=== PATIENT | male | born 1975 | race Caucasian/White ===

== ENCOUNTER 2020-04-18 08:27 | Emergency (ER) | payer OTHER ==
[~2020-04-18] VITALS: Ht 177.8 cm; Wt 88.5 kg
--- OUTSIDE RECORDS SUMMARY | 2020-04-18 08:40 | XMS ---
PreManage Notification: JOAQUÍN MEJIAS [employer] Shift Supervisor Events No recent Security Events currently on file CRITERIA MET - [facility] - 2 Visits in 30 Days CARE PROVIDERS TANVIR Ball Nurse Practitioner Current PHONE: [phone] Narinder has no Care Guidelines for this patient. EMayito VISIT COUNT (12 MO.) 2 Timothy Lujan [address] [place] [address] TOTAL 3 NOTE: Visits indicate total known visits. ED/UCC VISIT TRACKING (12 MO.) 04/18/2020 08:28 [facility] TYPE: Emergency COMPLAINT: - TESTICULAR PAIN 04/05/2020 13:00 [facility] TYPE: Emergency DIAGNOSES: - Laceration without foreign body, right foot, initial encounte - Foot Injury - Contusion of right foot, initial encounter - Right foot injury 03/03/2020 08:35 [facility] [place] TYPE: Urgent Care DIAGNOSES: - Other stimulant abuse, in remission - Strain of muscle, fascia and tendon of lower back, initial en - Encounter for screening for depression - Alcohol abuse counseling and surveillance of alcoholic - Nicotine dependence, unspecified, uncomplicated - Encounter for other general counseling and advice on contrace 07/29/2019 14:28 [facility] TYPE: Emergency DIAGNOSES: - Back pain - Radiculopathy, lumbar region INPATIENT VISIT TRACKING (12 MO.) No inpatient visits to display in this time frame [email or web address]
[2020-04-18] MEDS ORDERED: ACETAMINOPHEN500 MG PO (08:49)
[2020-04-18] MEDS ORDERED: HYDROXYZINE HCL50 MG PO (08:50)
[2020-04-18] MEDS ORDERED: ADVIL200 MG PO (08:50)
[2020-04-18] MEDS ORDERED: TRAZODONE HCL100 MG PO (08:51)
[2020-04-18] MEDS ORDERED: MELATIN3 MG PO (08:51)
[2020-04-18] MEDS ORDERED: ONE-DAILY MULT1 EAC1 PO (08:52)
[2020-04-18] MEDS ORDERED: DOXYCYCLINE HY100 MG PO (11:48)
[2020-04-18] MEDS ORDERED: NORCO 5-325 TA1 EACH PO (11:49)
[2020-04-18] MEDS ORDERED: NAPROSYN500 MG PO (11:49)
== END 2020-04-18 12:31 | disposition home or self-care (01) ==
LOC: ED 08:27
DX: N45.1 Epididymitis (principal); N43.3 Hydrocele, unspecified; F17.200 Nicotine dependence, unspecified, uncomplicated
CPT/HCPCS: 76870; 81001; 87491; 87591; 96372; 99284-25; J0696; J1885

== ENCOUNTER 2022-07-06 15:32 | Emergency (ER) | payer OTHER ==
[~2022-07-06] VITALS: Ht 177.8 cm; Wt 88.5 kg
[~2022-07-06 15:32] MED LIST: ACETAMINOPHEN500 MG PO; ADVIL200 MG PO; DOXYCYCLINE HY100 MG PO; HYDROXYZINE HCL50 MG PO; MELATIN3 MG PO; NAPROSYN500 MG PO; NORCO 5-325 TA1 EACH PO; ONE-DAILY MULT1 EAC1 PO; TRAZODONE HCL100 MG PO
--- OUTSIDE RECORDS SUMMARY | 2022-07-06 15:40 | XMS ---
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 E.Jarred VISIT COUNT (12 MO.) [address] TOTAL 3 NOTE: Visits indicate total known visits. ED/C VISIT TRACKING (12 MO.) 07/06/2022 15:32 [facility] [place] TYPE: Emergency COMPLAINT: - CHEST PAIN 06[facility]18/2022 21:35 [facility] [place] [facility] Emergency DIAGNOSES: - Adverse effect of fentanyl or fentanyl analogs, initial encounter - poss heart attack 06/18/2022 09:04 [facility] DIAGNOSES: - Poisoning by unspecified drugs, medicaments and biological substances, accidental (unintentional), initial encounter - Sleep apnea, unspecified - OVERDOSE INPATIENT VISIT TRACKING (12 MO.) No inpatient visits to display in this time frame [id number]
--- NOTE | 2022-07-08 19:01 | EKG ---
[facility] [address] [facility] [place] [address] Signed Normal sinus rhythm Normal ECG No previous ECGs available Confirmed by RACHEL CAPUTO MD ([id number]) on 07/08/2022 7:01:34 PM Electronically Signed By: RACHEL CAPUTO MD 07/08/221900 PATIENT NAME: YULIANA MEJIASANGEL VIRGEN JR Electrocardiogram DATE OF : 79 PHYSICIAN: RACHEL CAPUTO MD REPORT #: [id number] REPORT IS CONFIDENTIAL AND NOT TO BE RELEASED WITHOUT AUTHORIZATION
== END 2022-07-06 16:47 | disposition left against medical advice (07) ==
LOC: ED 15:32
DX: Z53.21 Procedure and treatment not carried out due to patient leaving prior to being seen by health care provider (principal)
CPT/HCPCS: 36415; 71045; 80053; 83735; 84484; 85025; 93005; 93010